=== PATIENT | female | born 1935 | race Hispanic/Latino ===

== ENCOUNTER 2018-12-31 08:02 | Inpatient (IN) | payer MEDICARE ==
[~2018-12-31] VITALS: Ht 154.9 cm; Wt 66.3 kg
[2018-12-31] VITALS (21 sets, daily range): BP systolic 119–173; BP diastolic 42–95
--- NOTE | 2018-12-31 10:04 | NUR ---
PATIENT RECEIVED FROM [facility], REPORT FROM SHANNAN CASAS RN. PT WAS ADMITTED TO [facility] 12/28/18 FOR C/O SOB AND CHEST PAIN. PT IS AAOX4, NO ACUTE DISTRESS AT THIS TIME. PLAN FOR TODAY IS LEFT HEART CATH WITH DR. CATHERINE AVALOS. PATIENT ABLE TO VERBALIZE PLAN AND STATES SHE SPOKE WITH DR. AVALOS AT [facility]. PATIENT AND FAMILY PRESENT INSTRUCTED ON POC INCLUDING LHC AND NPO STATUS. NOTED WITH TELE HR 40s WITH FREQUENT PVC. REFER TO V/S FLOW SHEET FOR INITIAL VITALS. WILL CONT TO MONITOR.
[2018-12-31] MEDS ORDERED: INSU100V37 SQ (12:06)
[2018-12-31] MEDS ORDERED: LISI10TA7 PO (12:06)
[2018-12-31] MEDS ORDERED: ESOM40CA54 PO (12:06)
[2018-12-31] MEDS ORDERED: PRAV10TA39 PO (12:06)
[2018-12-31] MEDS ORDERED: COLE625 PO (12:06)
[2018-12-31] MEDS ORDERED: GLIP1TAB6 PO (12:06)
[2018-12-31] MEDS ORDERED: LIDOCAINE HCL 1% 20 ML VIAL ONE (12:43)
[2018-12-31] MEDS ORDERED: IOHEXOL-350 50ML VIAL IV ONE (12:43)
[2018-12-31] MEDS ORDERED: NITROGLYCERIN 5 MG/ML 10 ML VIAL IV ONE (12:43)
[2018-12-31] MEDS ORDERED: IOHEXOL 350 MG/ML 100ML INFUS..BTL IV ONE (12:43)
--- NOTE | 2018-12-31 12:55 | NUR ---
ANJEL HANDY RN HERE TO TRANSPORT PATIENT TO COMPUTER ENGINEERING TECHNOLOGIST.
[2018-12-31] MEDS ORDERED: GLUCAGON 1MG KIT 1 MG ML IM PRN (13:45)
[2018-12-31] MEDS ORDERED: DEXTROSE 50%-WATER 50 ML DISP.SYRIN IV PRN (13:45)
[2018-12-31] MEDS ORDERED: HYDRALAZINE HCL 20 MG/ML VIAL IV PRN (13:45)
[2018-12-31] MEDS ORDERED: HYDRALAZINE HCL 20 MG/ML VIAL ONE (13:48)
--- NOTE | 2018-12-31 14:40 | NUR ---
PATIENT BACK FROM [facility], REPORT FROM MARLENE SEXTON. RIGHT GROIN NOTED WITH PERCLOSE, SOFT, NO BLEEDING AND NO HEMATOMA PULSES NOTED DISTALLY. BP 130/53 HR 79. PT WITH C/O ABDOMINAL PAIN. I NOTIFIED DR. ZAMBRANO THAT PATIENT IS BACK FROM [facility], HAS ABD PAIN AND THERE IS NO PRN PAIN MEDICATION ORDERED. WILL AWAIT CALL BACK.
--- NOTE | 2018-12-31 14:43 | NUR ---
RECEIVED CALL BACK FROM DR. ZAMBRANO WITH NEW ORDERS TO BE CARRIED OUT.
[2018-12-31] MEDS ORDERED: MORPHINE SULFATE 4 MG/1ML SYG IM PRN (14:45)
[2018-12-31] MEDS ORDERED: MORPHINE SULFATE 2 MG/ML 1ML SYG ONE (14:46)
[2018-12-31] MEDS: MORPHINE SULFATE 2 MG/ML 1ML SYG IVP PRN (14:53)
[2018-12-31] MEDS: INSULIN HUMULIN R 100 UNIT/ML 3ML SQ SCH ×2 (17:11→21:07)
[2018-12-31] MEDS ORDERED: AMIODARONE HCL 900 MG in DEXTROSE 5%-WATER 500 ML IV PRN (20:00)
[2018-12-31] MEDS: LISINOPRIL 20 MG TABLET PO SCH (20:26)
[2018-12-31] MEDS: METOPROLOL TARTRATE 50 MG TAB PO SCH (21:06)
[2018-12-31] MEDS ORDERED: ACETAMINOPHEN 325 MG TAB ONE (21:12)
--- NOTE | 2018-12-31 22:30 | NUR ---
AMIODARONE AMIODARONE HELD AT THIS TIME HR 55-56. WILL CONTINUE TO MONITOR.
[2018-12-31] MEDS ORDERED: ONDANSETRON HCL MDV 20ML 2 MG/ML VIAL IVP PRN (23:15)
[2018-12-31] MEDS ORDERED: ACETAMINOPHEN 325 MG TAB PO PRN (23:15)
[2018-12-31] MEDS ORDERED: TEMAZEPAM 7.5 MG CAPSULE PO PRN (23:15)
[2018-12-31] MEDS ORDERED: LACTULOSE 20 GM/30 ML UDCUP PO PRN (23:15)
[2018-12-31] MEDS ORDERED: TEMAZEPAM 30 MG CAP ONE (23:35)
[2019-01-01] VITALS (16 sets, daily range): BP systolic 124–170; BP diastolic 47–93
[2019-01-01] MEDS: INSULIN GLARGINE 100 UNITS/ML 10 ML VIAL SQ SCH ×2 (00:10→21:24)
[2019-01-01 03:42] LABS: HEMATOCRIT 35.4 % (36-48); MEAN CORPUSCULAR HEMOGLOBIN 30.6 pg (27.0-33.0); MEAN CORPUSCULAR HGB CONC 34.2 g/dL (32.0-36.0); MEAN CORPUSCULAR VOLUME 89.6 fL (79-99); NUCLEATED RED BLOOD CELLS 0.1 % (0.0-0.19); PLATELET COUNT (AUTO) 229 K/uL (130-400); RED BLOOD CELL COUNT(AUTO) 3.95 MIL/uL (4.00-5.50); RED CELL DISTRIBUTION WIDTH 14.2 % (11.0-15.5); WHITE BLOOD COUNT (AUTO) 11.9 K/uL (4.8-10.8)
[2019-01-01 03:53] LABS: INR 1.09 (0.85-1.15); PARTIAL THROMBOPLASTIN TIME 27.3 SEC (26.3-35.5); PROTHROMBIN TIME 11.4 SEC (9.6-11.6)
[2019-01-01 04:09] LABS: ALBUMIN 3.2 g/dL (3.5-5.0); BILIRUBIN,TOTAL 0.8 mg/dL (0.2-1.0); CREATININE 0.9 mg/dL (0.5-1.5); MAGNESIUM 2.1 mg/dL (1.80-2.40); PHOSPHORUS 4.4 mg/dL (2.5-4.9); POTASSIUM 3.8 mmol/L (3.5-5.1); THYROID STIMULATING HORMONE 1.14 uIU/mL (0.36-3.74); TOTAL PROTEIN, SERUM 6.8 g/dL (6.0-8.3)
[2019-01-01 04:13] LABS: B-TYPE NATRIURETIC PEPTIDE 1180 pg/mL (0-100)
[2019-01-01 04:22] LABS: HEMOGLOBIN A1C 8.3 % (4.0-6.0)
[2019-01-01] MEDS: MORPHINE SULFATE 2 MG/ML 1ML SYG IVP PRN (05:06)
[2019-01-01] MEDS ORDERED: FUROSEMIDE 10 MG/ML 2ML VIAL IV SCH (05:30)
[2019-01-01 06:28] LABS: TROPONIN I 0.07 ng/mL (0.00-0.06)
[2019-01-01] MEDS: INSULIN HUMULIN R 100 UNIT/ML 3ML SQ SCH ×3 (07:00→21:00)
--- NOTE | 2019-01-01 08:15 | NUR ---
ROUNDS DR. CATHERINE AVALOS IN TO SEE PATIENT. MD SPOKE WITH PATIENT AND DAUGHTER. INFORMED THEM RESULTS POST LEFT HEART CATH AND PENDING CONSULT WITH DR. IVEY. ORDERS TO DOWNGRADE PATIENT TO PCCU. EN SEXTON CHARGE NURSE MADE AWARE.
[2019-01-01] MEDS: POTASSIUM CHLORIDE 10% ELIXIR 20 MEQ/15 ML UDCUP PO SCH ×2 (08:45→21:12)
[2019-01-01] MEDS: FUROSEMIDE 10 MG/ML 4ML VIAL IV SCH ×2 (08:51→21:12)
[2019-01-01] MEDS: LISINOPRIL 20 MG TABLET PO SCH ×2 (08:52→21:12)
[2019-01-01] MEDS: METOPROLOL TARTRATE 50 MG TAB PO SCH ×2 (08:52→21:12)
[2019-01-01] MEDS: AMLODIPINE BESYLATE 5 MG TAB PO SCH (08:52)
--- NOTE | 2019-01-01 10:30 | NUR ---
DIRECTIVES SW met with pt's daughter at bedside. Sw educated on Directives. Daughter to discuss with pt and siblings and if assist needed to complete they will recontact SW.
--- NOTE | 2019-01-01 11:20 | NUR ---
PATIENT TO BE TRANSFERRED TO ROOM 203, REPORT GIVEN TO STEPHANIE SEXTON. ALL BELONGINGS TAKEN BY FAMILY. Addendum: 01/01/19 at 1213 by MARCELA HERNANDEZ RN RN INFORMED STEPHANIE SEXTON THAT DR. IVEY HAS NOT BEEN IN TO SEE PATIENT. NOTIFIED TO CALL DR. IVEY OF CONSULT. INFORMED STEPHANIE SEXTON THAT DR. AVALOS HAD SPOKEN TO DR. IVEY REGARDING CASE.
--- NOTE | 2019-01-01 13:30 | NUR ---
Nutrition intervention: Nutrition consult for poor appetite. Pt currently on CCD 75gm diet therapy with 25% intake. Pt reports no appetite. Recommend appetite stimulant or multivitamin. Pt agreeable to nutrition supplementation QD for added caloric and protein intake. Pt will try supplement-increase frequency at follow up if pt likes and tolerates Glucerna [place]. Addendum: 01/01/19 at [address] Amended: Links added.
[2019-01-01] MEDS: MEXILETINE HCL 150 MG CAP PO SCH ×2 (13:54→21:11)
--- NOTE | 2019-01-01 15:41 | NUR ---
DC PLAN VISITED WITH PATIENT. PATIENT LIVES WITH SPOUSE. INDEPENDENT ABLE TO PERFORM ADL'S. PATIENT HAS NO SERVICES OR DME'S. FEELS SAFE TO RETURN HOME. Addendum: 01/01/19 at 1545 by RADHA WEISS RN CM Amended: Links added.
--- NOTE | 2019-01-01 15:43 | NUR ---
[facility] PLAN - NEW VISITED WITH PATIENT. PATIENT LIVES WITH DAUGHTER. SEMI INDEPENDENT ABLE TO PERFORM SOME ADL'S. PATIENT HAS NO DME'S. PROVIDER 4 HRS A DAY. FEELS SAFE TO RETURN HOME. Addendum: 01/01/19 at 1545 by RADHA WEISS RN CM Amended: Links added.
--- NOTE | 2019-01-02 01:15 | NUR ---
Patient c/o of stomach pain/ abdominal cramps after drinking Potassium elixir. Conrad Mitchell notified. New Order placed by [facility]
[2019-01-02] MEDS ORDERED: SIMETHICONE 80 MG TAB.CHEW PO SCH (01:30)
[2019-01-02 04:12] LABS: CREATININE 0.9 mg/dL (0.5-1.5); POTASSIUM 3.5 mmol/L (3.5-5.1)
[2019-01-02 04:16] VITALS: BP 151/91
--- NOTE | 2019-01-02 05:45 | NUR ---
Patient stated he was having difficulty breathing. 2L via NC placed on patient. Patient sat at 100%. Sat patient upright. Lungs sounds fine crackles at bases. Notified Conrad Mitchell. Orders for EKG and Cardiac panel.
[2019-01-02] MEDS: MEXILETINE HCL 150 MG CAP PO SCH ×2 (05:51→13:20)
[2019-01-02] MEDS: INSULIN HUMULIN R 100 UNIT/ML 3ML SQ SCH ×3 (06:00→16:01)
[2019-01-02 06:22] LABS: CREATINE KINASE, TOTAL 78 U/L (21-232); MYOGLOBIN 56 ng/mL (10-92); TROPONIN I < 0.04 ng/mL (0.00-0.06)
[2019-01-02 07:44] VITALS: BP 163/78
--- NOTE | 2019-01-02 07:49 | NUR ---
Macrina PARIS PA-C IN ROOM SPEAKING WITH PT. AND PT.'S DAUGHTER AT BEDSIDE RE:PLAN OF CARE AND DISCHARGE DISPOSITION.
[2019-01-02] MEDS ORDERED: POTASSIUM CHLORIDE 10% ELIXIR 20 MEQ/15 ML UDCUP PO SCH (09:00)
[2019-01-02] MEDS: METOPROLOL TARTRATE 50 MG TAB PO SCH (09:15)
[2019-01-02] MEDS: AMLODIPINE BESYLATE 5 MG TAB PO SCH (09:15)
[2019-01-02] MEDS: LISINOPRIL 20 MG TABLET PO SCH (09:15)
[2019-01-02] MEDS: FUROSEMIDE 10 MG/ML 4ML VIAL IV SCH (09:16)
[2019-01-02] MEDS ORDERED: MEXI150 PO (10:02)
[2019-01-02] MEDS ORDERED: FURO40TA7 PO (10:02)
[2019-01-02] MEDS ORDERED: AMLO5TAB4 PO (10:02)
[2019-01-02] MEDS ORDERED: LISI-613 PO (10:02)
[2019-01-02] MEDS ORDERED: METO50 PO (10:02)
[2019-01-02] MEDS ORDERED: K1015L PO (10:02)
[2019-01-02 11:38] VITALS: BP 133/94
--- NOTE | 2019-01-02 13:08 | NUR ---
DC PLAN CALLED DR. ANJEL LEACH OFFICE SEVERAL TIMES NO ANSWER LEFT MESSAGE. PATIENT NEEDS TO SEE [facility] TO SET UP HOME HEALTH. AT THIS POINT LET NURSE KNOW PATIENT HAS TO GO TO [facility] IN ORDER TO GET HOME HEALTH. [facility] INFO SIGNED. SENT. PENDING APPROVAL. SPOKE TO REP SAID NEEDED ECHO NONE DONE HERE TRANSFER FROM [facility] HAD CM BLOCKER AND SEWER OVER THERE TO SEE IF THEY DID AN ECHO. NO ECHO IN MEDICAL RECORDS SENT WITH PATIENT. REP CALLING HEART CLINIC TO SEE IF PATIENT HAS RECENT ECHO. ONLY MENTION OF ECHO WAS FROM DR. AVALOS SAYING THAT IT LIKELY BE DONE NOT ORDERED ONE. AT THIS TIME PENDING REP CALL BACK. Addendum: 01/02/19 at 1313 by RADHA WEISS RN CM Amended: Links added.
--- NOTE | 2019-01-02 15:47 | NUR ---
DC PLAN VISITED WITH PATIENT AND FAMILY. PATIENT APPEARS MORE TIRED AND LESS AWAKE. FAMILY DOES NOT WANT TO GO TO FACILITY THEY WANT TO GO HOME. DISCUSSED END OF LIFE CARE AND HOSPICE. OPEN TO IDEA SAID WILL SPEAK TO DAD. PATIENT DID NOT REALLY WANT DIALYSIS IN THE FIRST PLACE AND THAT SHE SAYS THAT ITS PAIN FUL. PATIENT ALSO HAS A WEAK HEART THAT HAS HAD PAUSES. [facility] WILL CONTINUE TO FOLLOW. Addendum: 01/02/19 at 1601 by RADHA WEISS RN CM Amended: Links added. Addendum: 01/02/19 at 1602 by RADHA WEISS RN CM WRONG PATIENT.
--- NOTE | 2019-01-02 16:03 | NUR ---
DC PLAN VISITED WITH PATIENT LET FAMILY KNOW THAT [facility] APPROVED AND WILL BE HERE AROUND 4PM. [facility] LEFT MESSAGES WITH [facility] BUT NO CALL BACK. THEY WILL HAVE TO GO TO HIS OFFICE FOR HOME HEALTH TO BE SET UP. PATIENT AND FAMILY OKAY WITH THAT.
[2019-01-02 16:04] VITALS: BP 147/78
--- NOTE | 2019-01-02 16:05 | NUR ---
LIFEVEST REP. IN ROOM APPLYING VEST ON PT.; PT.'S DAUGHTER IN ROOM FOR INSTRUCTIONS.
--- NOTE | 2019-01-02 16:37 | NUR ---
DR. ZAMBRANO NOTIFIED VIA TELEPHONE RE:CM INABILITY TO ARRANGE HH. OK TO DISCHARGE HOME PER DR. ZAMBRANO.
--- NOTE | 2019-01-02 16:55 | NUR ---
HL REMOVED, CATHETER INTACT. DISCHARGE INSTRUCTIONS PROVIDED TO PT. AND PT.'S DAUGHTER AT BEDSIDE, VERBALIZED MUTUAL UNDERSTANDING.
[2019-01-03] MEDS ORDERED: FUROSEMIDE 40 MG TABLET PO SCH (09:00)
== END 2019-01-02 17:20 | disposition home or self-care (01) | DRG 286 ==
LOC: 2CH 09:55 → 2AH 01-01 11:18
PROVIDERS: ADMIT Internal Medicine; ATTEND Internal Medicine
PROC: B2151ZZ Fluoroscopy of Left Heart using Low Osmolar Contrast (ICD-10-PCS; principal; 2018-12-31)
PROC: 4A023N7 Measurement of Cardiac Sampling and Pressure, Left Heart, Percutaneous Approach (ICD-10-PCS; 2018-12-31)
PROC: B2111ZZ Fluoroscopy of Multiple Coronary Arteries using Low Osmolar Contrast (ICD-10-PCS; 2018-12-31)
DX: I25.10 Atherosclerotic heart disease of native coronary artery without angina pectoris (principal); I50.43 Acute on chronic combined systolic (congestive) and diastolic (congestive) heart failure; I47.2 Ventricular tachycardia; I25.5 Ischemic cardiomyopathy; I08.0 Rheumatic disorders of both mitral and aortic valves; I44.7 Left bundle-branch block, unspecified; E03.9 Hypothyroidism, unspecified; E11.9 Type 2 diabetes mellitus without complications; E78.2 Mixed hyperlipidemia; I11.0 Hypertensive heart disease with heart failure; I42.0 Dilated cardiomyopathy; Z79.899 Other long term (current) drug therapy; Z86.73 Personal history of transient ischemic attack (TIA), and cerebral infarction without residual deficits; Z80.8 Family history of malignant neoplasm of other organs or systems; Z82.3 Family history of stroke; Z82.49 Family history of ischemic heart disease and other diseases of the circulatory system; Z83.3 Family history of diabetes mellitus; Z90.49 Acquired absence of other specified parts of digestive tract
CPT/HCPCS: 36415; 71045; 80048; 80053; 82550; 82948; 83036; 83540; 83550; 83735; 83874; 83880; 84100; 84443; 84484; 85027; 85610; 85730; 93005; 93458; 97039; C1760; C1894; G0378; J0360; J1644; J1815; J1940; J3490; Q9967

== ENCOUNTER 2019-04-05 06:00 | Day surgery (SDC) | payer MEDICARE ==
[2019-04-03 10:45] LABS: EOSINOPHILS % (AUTO) 4.2 % (0.0-8.0); HEMATOCRIT 37.8 % (36-48); LYMPHOCYTES % (AUTO) 38.4 % (21.0-51.0); MEAN CORPUSCULAR HGB CONC 33.5 g/dL (32.0-36.0); MEAN CORPUSCULAR VOLUME 89.6 fL (79-99); MONOCYTES % (AUTO) 7.8 % (3.0-13.0); NEUTROPHILS % (AUTO) 48.6 % (40.0-77.0); PLATELET COUNT (AUTO) 221 K/uL (130-400); RED BLOOD CELL COUNT(AUTO) 4.22 MIL/uL (4.00-5.50); RED CELL DISTRIBUTION WIDTH 14.2 % (11.0-15.5); WHITE BLOOD COUNT (AUTO) 6.5 K/uL (4.8-10.8)
[2019-04-03 10:49] VITALS: BP 135/67
[2019-04-03 10:53] LABS: CREATININE 0.9 mg/dL (0.5-1.5); POTASSIUM 3.2 mmol/L (3.5-5.1)
[2019-04-03 10:56] LABS: INR 1.11 (0.85-1.15); PROTHROMBIN TIME 11.6 SEC (9.6-11.6)
--- NOTE | 2019-04-04 11:10 | NUR ---
POTASSIUM INFORMED DR. IVEY OF ABNORMAL POTASSIUM. ORDERS RECEIVED TO REDRAW BMP IN AM OF PROCEDURE AND INFORM HIM.
[2019-04-05] VITALS (11 sets, daily range): BP systolic 135–161; BP diastolic 62–91
[~2019-04-05] VITALS: Ht 157.5 cm; Wt 59.1 kg
[~2019-04-05 06:00] MED LIST: CARV12.511 PO; COLE625 PO; ESOM40CA54 PO; GLIP1TAB6 PO; INSU100V37 SQ; LISI-613 PO; LORA10CA9 PO; LUBI24CA2 PO; MEXI200 PO; PRAV10TA39 PO
--- NOTE | 2019-04-05 06:15 | NUR ---
PRE-PROCEDURE: PATIENT BROUGHT TO ROOM BY ART LIBRARIAN (ELANA) AND ACCOMPANIED BY DAUGHTER. PATIENT AAOX3 BUT FORGETFUL AT TIMES. PATIENT HAS LIFEVEST ON. NO C/O PAIN AT THIS TIME. RESPIRATIONS UNLABORED. EXPLAINED TO PATIENT/DAUGHTER PROCEDURE, VERBALIZED UNDERSTANDING.
[2019-04-05 06:34] LABS: CREATININE 0.8 mg/dL (0.5-1.5); POTASSIUM 3.1 mmol/L (3.5-5.1)
[2019-04-05] MEDS ORDERED: SODIUM CHLORIDE 0.9% 1000ML 1,000 ML IV SCH (08:00)
--- NOTE | 2019-04-05 08:00 | NUR ---
RE: POTASSIUM/GLUCOSE TRISHA LEWIS RN CALLED DR IVEY AND INFORMED HIM OF LOW POTASSIUM 3.1 AND BS 337. ORDERS RECEIVED AND NOTED.
[2019-04-05] MEDS ORDERED: POTASSIUM CHLORIDE 20 MEQ/100 ML BAG IV SCH (08:15)
[2019-04-05] MEDS ORDERED: INSULIN HUMULIN R 100 UNIT/ML 3ML ONE (08:23)
--- NOTE | 2019-04-05 09:05 | NUR ---
RE: CHANGE IN VITALS CALLED DR IVEY AND INFORMED HIM THAT PATIENT PULSE IS IN 40'S AND SHE IS HAVING PAIN FROM POTASSIUM INFUSION. PER DR IVEY HE IS ON HIS WAY TO SEE PATIENT.
--- NOTE | 2019-04-05 09:15 | NUR ---
TRANSFERRED TO CATH: PATIENT TAKEN TO [facility]IA [facility]RETCHER BY CARLIE MOHAN.
[2019-04-05] MEDS ORDERED: HEPARIN SODIUM 1000UNIT/ML 10ML VIAL ONE (09:43)
[2019-04-05] MEDS ORDERED: LIDOCAINE HCL 2% 20ML ONE (09:43)
[2019-04-05] MEDS ORDERED: ISOPROTERENOL HCL 0.2 MG/ML AMP/VIAL/BAG ONE ×2 (10:20→10:33)
[2019-04-05] MEDS ORDERED: MEPERIDINE-PF 25 MG/ML SYG ONE (10:39)
[2019-04-05] MEDS ORDERED: MIDAZOLAM HCL 1 MG/ML 2ML VIAL ONE (10:39)
--- NOTE | 2019-04-05 11:50 | NUR ---
REPORT CALLED: RECEIVED REPORT FROM DAUPHIN REGARDING PATIENT'S STATUS POST PROCEDURE (EP STUDY DONE).
[2019-04-05] MEDS ORDERED: INSULIN HUMULIN R 100 UNIT/ML 3ML SQ SCH (12:00)
--- NOTE | 2019-04-05 15:21 | NUR ---
ECHO: JOANNE FOLEY, (CERTIFIED CODER) AT BEDSIDE PERFORMING ECHO STUDY.
--- NOTE | 2019-04-05 16:00 | NUR ---
DISCHARGE: DISCHARGE INSTRUCTIONS PROVIDED TO PATIENT'S DAUGHTER, VERBALIZED UNDERSTANDING. [id number] PATIENT DISCHARGED FROM FACILITY VIA WHEELCHAIR BY BEBE PIZARRO AND ACCOMPANIED BY DAUGHTER
== END 2019-04-05 16:20 ==
LOC: DAH 06:00
PROVIDERS: ATTEND Internal Medicine Cardiovascular Disease
DX: I47.2 Ventricular tachycardia (principal); I47.1 Supraventricular tachycardia; E11.9 Type 2 diabetes mellitus without complications; I11.0 Hypertensive heart disease with heart failure; I50.43 Acute on chronic combined systolic (congestive) and diastolic (congestive) heart failure; Z79.4 Long term (current) use of insulin; E78.5 Hyperlipidemia, unspecified; I25.10 Atherosclerotic heart disease of native coronary artery without angina pectoris; E03.9 Hypothyroidism, unspecified; Z86.73 Personal history of transient ischemic attack (TIA), and cerebral infarction without residual deficits; Z98.890 Other specified postprocedural states; Z79.84 Long term (current) use of oral hypoglycemic drugs; Z90.49 Acquired absence of other specified parts of digestive tract; Z79.899 Other long term (current) drug therapy; Z82.3 Family history of stroke; Z82.49 Family history of ischemic heart disease and other diseases of the circulatory system; Z83.3 Family history of diabetes mellitus
CPT/HCPCS: 36415 ×2; 80048 ×2; 82948 ×2; 85025; 85610; 85730; 93005 ×2; 93306; 93619; A4606; A4649; C1730 ×2; C1894 ×3; J1644; J1815; J2175; J2250; J3480; J3490 ×2; J7030; 99156; 99157

== ENCOUNTER 2020-12-25 00:14 | Inpatient (IN) | payer OTHER, MEDICARE ==
[~2020-12-25] VITALS: Ht 154.9 cm; Wt 56.1 kg
[~2020-12-25 00:14] MED LIST changes: +AMLO-257 PO; +APIX2.5T PO; +BACL10TA PO; -CARV12.511 PO; +FURO40TA5 PO; -GLIP1TAB6 PO; -LISI-613 PO; +LISI20TA24 PO; +LORA10TA7 PO; +METF-444 PO; +METO50TA18 PO; +POTA-202 PO
[2020-12-25 00:42] LABS: ABG BASE EXCESS -1.3 mmol/L (-2.0-3.0); ABG HCO3 21.5 mmol/L (21.0-28.0); ABG OXYGEN SATURATION 92.6 % (95.0-99.0); ABG PCO2 31 mmHg (32-45)
[2020-12-25] MEDS ORDERED: AZITHROMYCIN 500MG+NS 250ML 250 ML IV ONE (01:20)
[2020-12-25] MEDS ORDERED: CEFTRIAXONE 1G VIAL ONE (01:21)
[2020-12-25 01:26] LABS: BASOPHILS % (AUTO) 0.8 % (0.0-5.0); EOSINOPHILS % (AUTO) 2.6 % (0.0-8.0); HEMATOCRIT 33.5 % (36-48); LYMPHOCYTES % (AUTO) 18.2 % (21.0-51.0); MEAN CORPUSCULAR HEMOGLOBIN 30.6 pg (27.0-33.0); MEAN CORPUSCULAR VOLUME 90.1 fL (79-99); MONOCYTES % (AUTO) 8.1 % (3.0-13.0); PLATELET COUNT (AUTO) 272 K/uL (130-400); RED BLOOD CELL COUNT(AUTO) 3.72 MIL/uL (4.00-5.50); RED CELL DISTRIBUTION WIDTH 13.3 % (11.0-15.5); WHITE BLOOD COUNT (AUTO) 9.9 K/uL (4.8-10.8)
[2020-12-25 01:38] LABS: INR 1.12 (0.85-1.15); PROTHROMBIN TIME 12.1 SEC (9.6-11.6)
[2020-12-25 01:39] LABS: PARTIAL THROMBOPLASTIN TIME 27.2 SEC (26.3-35.5)
[2020-12-25 01:46] LABS: B-TYPE NATRIURETIC PEPTIDE 2000 pg/mL (0-100)
[2020-12-25 01:49] LABS: ALBUMIN 3.7 g/dL (3.5-5.0); BILIRUBIN,TOTAL 0.5 mg/dL (0.2-1.0); CREATININE 1.4 mg/dL (0.5-1.5); POTASSIUM 3.4 mmol/L (3.5-5.1); TOTAL PROTEIN, SERUM 7.8 g/dL (6.0-8.3); TROPONIN I 0.05 ng/mL (0.00-0.06)
[2020-12-25] MEDS ORDERED: FUROSEMIDE 40MG VIAL ONE (02:25)
[2020-12-25] MEDS ORDERED: INSULIN HUMULIN R 100 UNIT/ML 3ML ONE (02:46)
[2020-12-25] MEDS ORDERED: ONDANSETRON 4MG INJ IV PRN (03:00)
[2020-12-25] MEDS ORDERED: MORPHINE 2 MG SYG IV PRN (03:00)
[2020-12-25] MEDS ORDERED: ACETAMINOPHEN 325 MG TAB PO PRN ×2 (03:00)
[2020-12-25] MEDS ORDERED: AZITHROMYCIN 500MG+NS 250ML 250 ML IV SCH (03:00)
[2020-12-25] MEDS ORDERED: LIDOCAINE HCL-MPF 1% 2ML VIAL IV PRN (03:15)
[2020-12-25] MEDS ORDERED: POTASSIUM CHLORIDE 10MEQ/100ML 100 ML IV PRN (03:15)
[2020-12-25 04:25] LABS: APPEARANCE,URINE Clear (CLEAR); BILIRUBIN,URINE Negative (NEGATIVE); COLOR,URINE Yellow (YELLOW); GLUCOSE, URINE (UA) 500 mg/dL (NEGATIVE); KETONES,URINE Negative (NEGATIVE); LEUKOCYTE ESTERASE ,URINE Negative (NEGATIVE); NITRATE,URINE Negative (NEGATIVE); OCCULT BLOOD,URINE Negative (NEGATIVE); PROTEIN,URINE Negative (NEGATIVE); UROBILINOGEN,URINE 0.2 mg/dL (0.2-1.0)
[2020-12-25 04:29] LABS: HEMOGLOBIN A1C 8.7 % (4.0-6.0)
[2020-12-25 04:40] LABS: BACTERIA,URINE Rare /HPF (None Seen); RBC,URINE 0-1 /HPF (0-1); SQUAMOUS EPITHELIAL CELL,UR Rare /HPF (0-2); WBC,URINE 0-1 /HPF (0-1)
[2020-12-25] MEDS: INSULIN LISPRO 100 UNIT/ML 3ML SQ SCH ×3 (08:00→16:57)
[2020-12-25 08:38] LABS: CREATININE 1.4 mg/dL (0.5-1.5); MAGNESIUM 1.9 mg/dL (1.80-2.40)
[2020-12-25] MEDS ORDERED: FUROSEMIDE 40MG VIAL IVP SCH (09:00)
[2020-12-25] MEDS ORDERED: KCL 20 MEQ ERTAB PO SCH (09:00)
[2020-12-25] MEDS ORDERED: METOPROLOL TARTRATE 50 MG TAB PO SCH (09:00)
[2020-12-25] MEDS ORDERED: APIXABAN 2.5 MG TABLET PO SCH (09:00)
[2020-12-25] MEDS ORDERED: LISINOPRIL 20 MG TABLET PO SCH (09:00)
[2020-12-25] MEDS ORDERED: ENOXAPARIN SODIUM 40 MG/0.4 ML SYRINGE SQ SCH (09:00)
[2020-12-25] MEDS: INSULIN HUMULIN R 100 UNIT/ML 3ML SQ SCH ×4 (09:00→21:00)
[2020-12-25] MEDS: MEXILETINE 200 MG PO SCH ×3 (10:00→21:00)
[2020-12-25] MEDS: CEFTRIAXONE 1G VIAL IVP SCH ×2 (11:50→15:00)
[2020-12-25] MEDS: METOPROLOL TARTRATE 50 MG TAB PO SCH ×2 (11:57→21:54)
[2020-12-25] MEDS: LISINOPRIL 20 MG TABLET PO SCH (11:57)
[2020-12-25] MEDS: FUROSEMIDE 40MG VIAL IVP SCH ×2 (11:58→21:53)
[2020-12-25] MEDS: INSULIN GLARGINE 100 UNITS/ML 10 ML VIAL SQ SCH (12:11)
[2020-12-25] MEDS: DOXYCYCLINE 100MG+NS 250ML 250 ML IV SCH ×2 (12:14→21:55)
[2020-12-25 13:24] VITALS: BP 135/72
[2020-12-25 16:25] VITALS: BP 135/72
[2020-12-25] MEDS ORDERED: SENNOSIDES 8.6 MG TABLET PO SCH (18:00)
[2020-12-25] MEDS ORDERED: DOCUSATE SODIUM 100 MG CAP PO SCH (18:00)
[2020-12-25] MEDS ORDERED: POLYETHYLENE GLYCOL 3350 17 GM POWD.PACK PO SCH (18:00)
[2020-12-25 19:07] VITALS: BP 146/87
[2020-12-25] MEDS ORDERED: INSULIN GLARGINE 100 UNITS/ML 10 ML VIAL SQ SCH (21:00)
[2020-12-25 23:54] VITALS: BP 129/63
[2020-12-26] MEDS: CEFTRIAXONE 1G VIAL IVP SCH ×2 (03:04→14:22)
[2020-12-26 03:55] VITALS: BP 154/85
[2020-12-26 04:00] LABS: BASOPHILS % (AUTO) 0.8 % (0.0-5.0); EOSINOPHILS % (AUTO) 2.9 % (0.0-8.0); HEMATOCRIT 32.2 % (36-48); LYMPHOCYTES % (AUTO) 28.7 % (21.0-51.0); MEAN CORPUSCULAR HEMOGLOBIN 31.1 pg (27.0-33.0); MEAN CORPUSCULAR HGB CONC 34.8 g/dL (32.0-36.0); MEAN CORPUSCULAR VOLUME 89.4 fL (79-99); NEUTROPHILS % (AUTO) 60.3 % (40.0-77.0); PLATELET COUNT (AUTO) 295 K/uL (130-400); RED CELL DISTRIBUTION WIDTH 13.3 % (11.0-15.5)
[2020-12-26 04:13] LABS: ALBUMIN 3.4 g/dL (3.5-5.0); BILIRUBIN,TOTAL 0.3 mg/dL (0.2-1.0); CREATININE 1.2 mg/dL (0.5-1.5); MAGNESIUM 1.9 mg/dL (1.80-2.40); PHOSPHORUS 3.3 mg/dL (2.5-4.9); TOTAL PROTEIN, SERUM 6.9 g/dL (6.0-8.3); URIC ACID 5.4 mg/dL (2.6-7.2)
[2020-12-26] MEDS ORDERED: SIMETHICONE 80 MG TAB.CHEW PO PRN (04:15)
[2020-12-26] MEDS ORDERED: SIMETHICONE 80 MG TAB.CHEW ONE (04:18)
[2020-12-26 04:20] LABS: B-TYPE NATRIURETIC PEPTIDE 4070 pg/mL (0-100)
[2020-12-26] MEDS: INSULIN HUMULIN R 100 UNIT/ML 3ML SQ SCH ×4 (06:10→22:08)
[2020-12-26] MEDS ORDERED: POTASSIUM CHLORIDE 10MEQ/100ML 100 ML IV SCH (06:45)
[2020-12-26 07:34] VITALS: BP 153/94
[2020-12-26] MEDS ORDERED: KCL 20 MEQ ERTAB PO SCH (08:00)
[2020-12-26] MEDS: LISINOPRIL 20 MG TABLET PO SCH (08:28)
[2020-12-26] MEDS: METOPROLOL TARTRATE 50 MG TAB PO SCH ×2 (08:28→21:14)
[2020-12-26] MEDS: Vitamin B Complex/Vit C/Folic Acid PO SCH (08:28)
[2020-12-26] MEDS: MEXILETINE 200 MG PO SCH ×3 (08:43→21:00)
[2020-12-26] MEDS: INSULIN LISPRO 100 UNIT/ML 3ML SQ SCH ×3 (08:46→16:38)
[2020-12-26] MEDS: INSULIN GLARGINE 100 UNITS/ML 10 ML VIAL SQ SCH (08:48)
[2020-12-26] MEDS: FUROSEMIDE 40MG VIAL IVP SCH ×2 (08:49→21:15)
[2020-12-26] MEDS: DOXYCYCLINE 100MG+NS 250ML 250 ML IV SCH ×2 (08:54→21:15)
[2020-12-26 11:14] VITALS: BP 154/83
[2020-12-26 11:53] LABS: CREATININE 1.3 mg/dL (0.5-1.5); POTASSIUM 3.2 mmol/L (3.5-5.1)
[2020-12-26] MEDS ORDERED: POTASSIUM CHLORIDE 10% ELIXIR 20 MEQ/15 ML UDCUP PO PRN (12:45)
[2020-12-26 16:00] VITALS: BP 125/62
[2020-12-26] MEDS ORDERED: POTASSIUM CHLORIDE 10% ELIXIR 20 MEQ/15 ML UDCUP PO SCH (16:30)
[2020-12-26 17:21] LABS: CREATININE 1.2 mg/dL (0.5-1.5)
[2020-12-26 20:47] VITALS: BP 153/94
[2020-12-26 20:56] LABS: CREATININE 1.2 mg/dL (0.5-1.5)
[2020-12-27] VITALS (7 sets, daily range): BP systolic 114–143; BP diastolic 67–84
[2020-12-27] MEDS ORDERED: LORAZEPAM 0.5 MG TABLET ONE (01:19)
[2020-12-27] MEDS ORDERED: LORAZEPAM 0.5 MG TABLET PO PRN (01:30)
[2020-12-27] MEDS ORDERED: MEXILETINE HCL 150 MG CAP PO SCH (01:30)
[2020-12-27 01:57] LABS: BASOPHILS % (AUTO) 0.8 % (0.0-5.0); EOSINOPHILS % (AUTO) 1.7 % (0.0-8.0); HEMATOCRIT 35.6 % (36-48); LYMPHOCYTES % (AUTO) 26.5 % (21.0-51.0); MEAN CORPUSCULAR HEMOGLOBIN 30.4 pg (27.0-33.0); MEAN CORPUSCULAR HGB CONC 32.9 g/dL (32.0-36.0); MEAN CORPUSCULAR VOLUME 92.5 fL (79-99); MONOCYTES % (AUTO) 8.5 % (3.0-13.0); NEUTROPHILS % (AUTO) 62.2 % (40.0-77.0); PLATELET COUNT (AUTO) 328 K/uL (130-400); RED BLOOD CELL COUNT(AUTO) 3.85 MIL/uL (4.00-5.50); RED CELL DISTRIBUTION WIDTH 13.6 % (11.0-15.5); WHITE BLOOD COUNT (AUTO) 12.9 K/uL (4.8-10.8)
[2020-12-27 02:02] LABS: CREATININE 1.3 mg/dL (0.5-1.5); POTASSIUM 3.6 mmol/L (3.5-5.1)
[2020-12-27 02:13] LABS: MAGNESIUM 1.7 mg/dL (1.80-2.40); TROPONIN I 0.08 ng/mL (0.00-0.06)
[2020-12-27] MEDS: CEFTRIAXONE 1G VIAL IVP SCH ×2 (02:33→16:20)
[2020-12-27] MEDS ORDERED: MAGNESIUM 2GM PREMIX 50ML 50 ML IV ONE (02:36)
[2020-12-27] MEDS ORDERED: MAGNESIUM 2GM PREMIX 50ML 50 ML IV PRN (02:45)
[2020-12-27] MEDS: KCL 20 MEQ ERTAB PO PRN (02:53)
[2020-12-27] MEDS: INSULIN HUMULIN R 100 UNIT/ML 3ML SQ SCH ×4 (06:33→21:29)
[2020-12-27] MEDS ORDERED: KCL 20 MEQ ERTAB PO SCH (08:00)
[2020-12-27] MEDS ORDERED: MEXILETINE HCL 200 MG PO SCH (09:00)
[2020-12-27] MEDS: Vitamin B Complex/Vit C/Folic Acid PO SCH (09:14)
[2020-12-27] MEDS: FUROSEMIDE 40MG VIAL IVP SCH ×2 (09:15→20:33)
[2020-12-27] MEDS: LISINOPRIL 20 MG TABLET PO SCH (09:15)
[2020-12-27] MEDS: INSULIN GLARGINE 100 UNITS/ML 10 ML VIAL SQ SCH (09:32)
[2020-12-27] MEDS: INSULIN LISPRO 100 UNIT/ML 3ML SQ SCH ×3 (09:33→16:21)
[2020-12-27] MEDS: DOXYCYCLINE 100MG+NS 250ML 250 ML IV SCH ×2 (09:33→20:33)
[2020-12-27] MEDS: MEXILETINE 200 MG PO SCH ×3 (09:34→20:36)
[2020-12-28] MEDS: CEFTRIAXONE 1G VIAL IVP SCH ×2 (02:56→15:00)
[2020-12-28 04:29] VITALS: BP 135/71
[2020-12-28 05:26] LABS: HEMATOCRIT 31.7 % (36-48); MEAN CORPUSCULAR HEMOGLOBIN 30.7 pg (27.0-33.0); MEAN CORPUSCULAR HGB CONC 33.4 g/dL (32.0-36.0); MEAN CORPUSCULAR VOLUME 91.9 fL (79-99); PLATELET COUNT (AUTO) 259 K/uL (130-400); RED BLOOD CELL COUNT(AUTO) 3.45 MIL/uL (4.00-5.50); RED CELL DISTRIBUTION WIDTH 13.9 % (11.0-15.5); WHITE BLOOD COUNT (AUTO) 9.5 K/uL (4.8-10.8)
[2020-12-28 05:41] LABS: CREATININE 1.3 mg/dL (0.5-1.5); POTASSIUM 3.5 mmol/L (3.5-5.1)
[2020-12-28 06:03] LABS: BAND NEUTROPHILS % (MANUAL) 2 % (0-2); BASOPHILS % (MANUAL) 2 % (0-2); EOSINOPHILS % (MANUAL) 2 % (1-6); LYMPHOCYTES % (MANUAL) 38 % (22-44); MAN.DIFF COMMENT-IMPRESSION MANUAL DIFFERENTIAL; PLATELET MORPHOLOGY COMMENT ADEQUATE; SEGMENTED NEUTROPHILS % 56 % (40-70)
[2020-12-28] MEDS: INSULIN HUMULIN R 100 UNIT/ML 3ML SQ SCH ×5 (06:38→21:01)
[2020-12-28 07:30] VITALS: BP 124/62
[2020-12-28] MEDS: INSULIN LISPRO 100 UNIT/ML 3ML SQ SCH ×4 (08:00→17:28)
[2020-12-28] MEDS: INSULIN GLARGINE 100 UNITS/ML 10 ML VIAL SQ SCH (09:00)
[2020-12-28] MEDS: LISINOPRIL 20 MG TABLET PO SCH (09:20)
[2020-12-28] MEDS: Vitamin B Complex/Vit C/Folic Acid PO SCH (09:20)
[2020-12-28] MEDS: FUROSEMIDE 40 MG TABLET PO SCH ×2 (09:21→16:15)
[2020-12-28] MEDS: MEXILETINE 200 MG PO SCH ×3 (09:21→21:01)
[2020-12-28] MEDS: DOXYCYCLINE 100MG+NS 250ML 250 ML IV SCH ×2 (09:26→20:49)
[2020-12-28 11:00] VITALS: BP 159/91
[2020-12-28] MEDS: KCL 20 MEQ ERTAB PO PRN ×2 (12:25→15:01)
[2020-12-28 16:00] VITALS: BP 145/88
[2020-12-28 20:25] VITALS: BP 144/82
[2020-12-28 23:36] VITALS: BP 128/62
[2020-12-28] MEDS ORDERED: TETR15DR83 OD (23:53)
[2020-12-29] MEDS ORDERED: ARTIFICIAL TEARS 3.5 GM OINTMENT OD SCH
[2020-12-29 05:11] VITALS: BP 130/61
[2020-12-29] MEDS: INSULIN HUMULIN R 100 UNIT/ML 3ML SQ SCH ×3 (06:54→16:52)
[2020-12-29 08:00] VITALS: BP 106/55
[2020-12-29] MEDS: INSULIN GLARGINE 100 UNITS/ML 10 ML VIAL SQ SCH (09:00)
[2020-12-29] MEDS ORDERED: CARVEDILOL 3.125 MG TABLET PO SCH (09:00)
[2020-12-29] MEDS: Vitamin B Complex/Vit C/Folic Acid PO SCH (09:58)
[2020-12-29] MEDS: LISINOPRIL 20 MG TABLET PO SCH (09:58)
[2020-12-29] MEDS: FUROSEMIDE 40 MG TABLET PO SCH ×2 (09:58→17:34)
[2020-12-29] MEDS: DOXYCYCLINE 100MG+NS 250ML 250 ML IV SCH (10:00)
[2020-12-29] MEDS: MEXILETINE 200 MG PO SCH ×2 (10:00→14:00)
[2020-12-29 11:30] VITALS: BP 127/54
[2020-12-29] MEDS: INSULIN LISPRO 100 UNIT/ML 3ML SQ SCH ×3 (11:49→17:35)
[2020-12-29] MEDS ORDERED: APIX2.5T PO (12:27)
[2020-12-29] MEDS ORDERED: DOXY100C5 PO (12:27)
[2020-12-29 16:00] VITALS: BP 124/77
[2021-03-19] MEDS ORDERED: FURO40TA7 PO (17:07)
[2021-03-19] MEDS ORDERED: MEMA5TAB42 PO (17:09)
[2021-03-19] MEDS ORDERED: MEXI200 PO (17:10)
[2021-03-19] MEDS ORDERED: OMEP40CA21 PO (17:11)
[2021-03-19] MEDS ORDERED: FOLI1 PO (17:14)
[2021-03-19] MEDS ORDERED: SERT-439 PO (17:14)
[2021-03-19] MEDS ORDERED: APIX2.5T PO (17:15)
[2021-03-22] MEDS ORDERED: CARV6.2579 PO (14:13)
[2021-03-22] MEDS ORDERED: GLIP5TAB11 PO (14:13)
[2021-03-25] MEDS ORDERED: METO25TA6 PO (11:22)
[2021-03-25] MEDS ORDERED: LISI40TA9 PO (11:22)
== END 2020-12-29 18:18 | disposition home or self-care (01) | DRG 291 ==
LOC: EDH 00:14 → EDHIP 02:49 → 2AH 08:01 → 4BH 12-26 18:05
PROVIDERS: ADMIT Internal Medicine; ATTEND Internal Medicine
DX: I13.0 Hypertensive heart and chronic kidney disease with heart failure and stage 1 through stage 4 chronic kidney disease, or unspecified chronic kidney disease (principal); J18.9 Pneumonia, unspecified organism; J96.01 Acute respiratory failure with hypoxia; I50.43 Acute on chronic combined systolic (congestive) and diastolic (congestive) heart failure; E87.1 Hypo-osmolality and hyponatremia; I24.8 Other forms of acute ischemic heart disease; N17.9 Acute kidney failure, unspecified; D68.69 Other thrombophilia; I42.8 Other cardiomyopathies; E87.6 Hypokalemia; E83.42 Hypomagnesemia; Z20.822 Contact with and (suspected) exposure to COVID-19; E11.65 Type 2 diabetes mellitus with hyperglycemia; I49.3 Ventricular premature depolarization; I08.0 Rheumatic disorders of both mitral and aortic valves; F03.90 Unspecified dementia, unspecified severity, without behavioral disturbance, psychotic disturbance, mood disturbance, and anxiety; E89.0 Postprocedural hypothyroidism; I48.91 Unspecified atrial fibrillation; E78.5 Hyperlipidemia, unspecified; N18.9 Chronic kidney disease, unspecified; Z82.49 Family history of ischemic heart disease and other diseases of the circulatory system; Z83.3 Family history of diabetes mellitus; Z82.3 Family history of stroke; Z80.8 Family history of malignant neoplasm of other organs or systems; Z86.73 Personal history of transient ischemic attack (TIA), and cerebral infarction without residual deficits; Z86.16 Personal history of COVID-19; Z79.4 Long term (current) use of insulin; Z90.49 Acquired absence of other specified parts of digestive tract; Z88.5 Allergy status to narcotic agent; Z88.8 Allergy status to other drugs, medicaments and biological substances; Z79.899 Other long term (current) drug therapy; Z79.01 Long term (current) use of anticoagulants
CPT/HCPCS: 36415; 36600; 71045; 74018; 80048; 80053; 81001; 82550; 82803; 82948; 83036; 83605; 83735; 83874; 83880; 84100; 84145; 84484; 84550; 85025; 85378; 85610; 85730; 86900; 86901; 87040; 87088; 87426; 87804; 93005; 93306; 93356; 99291; G0378; J0456; J0696; J1815; J1940; J2405; J3475; J3490; U0003